=== PATIENT | male | born 1995 | race Caucasian/White ===

== ENCOUNTER 2018-09-13 15:04 | Emergency (ER) | payer OTHER ==
[~2018-09-13] VITALS: Ht 180.3 cm; Wt 97.7 kg
--- NOTE | 2018-09-13 16:51 | REP ---
Soft-tissue ultrasound left medial thigh nonvascular. History: Painful lump in the left anterior thigh times 3 weeks. Question abscess versus cyst versus lymph node. Increasing in size. Findings: Scanning of the soft tissues in the region of the palpable abnormality shows a slightly hyperechoic area in the subcutaneous fat consistent with inflamed subcutaneous fat. No abnormal fluid collection is seen. There is no evidence of mass or lymph node. The area in question measures roughly 1.7 cm in greatest diameter. Scanning of the contralateral thigh region shows normal subcutaneous fat. Impression: Ill-defined area of slightly increased echogenicity in the subcutaneous fat in the area of interest consistent with locally inflamed subcutaneous fat. This is nonspecific. No abnormal fluid collection is seen to suggest abscess. No evidence of adenopathy or cyst. Electronically Signed by Froilan Prasad MD 09/13/2018 08:43 P
[2018-09-13 17:07] VITALS: BP 121/74
== END 2018-09-13 17:08 | disposition home or self-care (01) ==
LOC: M ED 15:04
DX: L72.3 Sebaceous cyst (principal)

== ENCOUNTER 2019-01-06 19:39 | Emergency (ER) | payer OTHER ==
[~2019-01-06] VITALS: Ht 180.3 cm; Wt 100.0 kg
[2019-01-06 21:00] LABS: INFLUENZA A AMPLIFICATION NEGATIVE (NEGATIVE); INFLUENZA B AMPLIFICATION NEGATIVE (NEGATIVE)
[2019-01-06] MEDS ORDERED: TESS100C PO (21:04)
[2019-01-06] MEDS ORDERED: MAGICMW SSP (21:04)
[2019-01-06] MEDS ORDERED: FLON1SPR NARES (21:04)
[2019-01-06 21:09] VITALS: BP 114/68
== END 2019-01-06 21:13 | disposition home or self-care (01) ==
LOC: M ED 19:39
DX: J06.9 Acute upper respiratory infection, unspecified (principal)

== ENCOUNTER 2019-06-22 20:26 | Emergency (ER) | payer OTHER ==
[~2019-06-22] VITALS: Ht 180.3 cm; Wt 100.0 kg
[~2019-06-22 20:26] MED LIST: FLON1SPR NARES; MAGICMW SSP; TESS100C PO
[2019-06-22 20:27] VITALS: BP 130/75
--- NOTE | 2019-06-23 08:06 | REP ---
RIGHT FOOT COMPLETE: 06/22/2019. Clinical history: Trauma. Comparison: Right ankle series this date. Findings: Four view show no heel spurs. Subtalar joints are intact. Talus, calcaneus, tarsal bones, metatarsals and phalanges are without fracture, avulsion or focal lesion. There is prominent soft tissue swelling over the anterolateral aspect of the ankle and hind foot. Impression: 1. Soft tissue swelling hind foot and anterolateral ankle, no fracture or acute bony finding. Electronically Signed by Kennedy Bowden MD 06/23/2019 07:58 A
--- NOTE | 2019-06-23 08:25 | REP ---
RIGHT ANKLE COMPLETE: 06/22/2019. Comparison: Right foot this date. Clinical history: Rolled ankle playing basketball. Findings: Four views are provided. There is soft tissue swelling over the anterolateral aspect of the right ankle. I see no fracture of the distal tibia or fibula. The ankle mortise joint was symmetric and preserved with no talar dome osteochondral defect. Subtalar joints intact. Talus and calcaneus are without fracture or focal lesion. No heel spurs. Tarsal articulations visible were grossly unremarkable. Impression: 1. Prominent soft tissue swelling over the anterolateral aspect left ankle without fracture, disruption of the ankle mortise joint or other acute finding. Electronically Signed by Kennedy Bowden MD 06/23/2019 07:30 P
== END 2019-06-22 22:38 | disposition home or self-care (01) ==
LOC: M ED 20:26
DX: S93.401A Sprain of unspecified ligament of right ankle, initial encounter (principal); X50.0XXA Overexertion from strenuous movement or load, initial encounter; Y93.67 Activity, basketball; Y92.9 Unspecified place or not applicable